=== PATIENT | male | born 1975 | race Asian ===

== ENCOUNTER 2025-10-25 06:32 | Day surgery (SDC) | payer BC ==
[2025-10-21 15:22] VITALS: BMI 25.7
[2025-10-25] MEDS ORDERED: Lidocaine 2% 6 ML (Jelly) SYR ONE (12:48)
[2025-10-25] MEDS ORDERED: Bupivacaine/Epinephrine 0.25% 30 ML VIAL ONE (12:48)
[2025-10-25] MEDS ORDERED: Ondansetron PF 4 MG/2 ML Vial ONE (13:08)
[2025-10-25] MEDS ORDERED: Lidocaine 1% PF 5 ML VIAL ONE (13:08)
[2025-10-25] MEDS ORDERED: PROPOFOL 20 ML ONE (13:08)
== END 2025-10-25 16:16 | disposition home or self-care (01) ==
LOC: CSHSDC 06:32
PROVIDERS: ATTEND Surgery
PROC: 06LY0CC Occlusion of Hemorrhoidal Plexus with Extraluminal Device, Open Approach (ICD-10-PCS; principal; 2025-10-25)
DX: K64.8 Other hemorrhoids (principal); K64.4 Residual hemorrhoidal skin tags
CPT/HCPCS: 88304; J1100; J2405; J2704; J3010